=== PATIENT | female | born 1990 | race Caucasian/White ===

== ENCOUNTER 2017-07-02 18:50 | Inpatient (IN) | payer BC ==
[2017-07-02] MEDS ORDERED: Metoclopramide IV* 5 MG/ML 2 ML VIAL IV SLOW PU ONE (19:26)
[2017-07-02] MEDS ORDERED: Buffered Lidocaine 0.9% SYRIN* 5 ML/SYR SYRINGE INTRADERM ONE (19:26)
[2017-07-02] MEDS ORDERED: Ondansetron INJ* 2 MG/ML VIAL IV ONE (19:26)
[2017-07-02] MEDS ORDERED: Morphine PF AMP (0.5MG/ML)* 5 MG/10 ML AMP ONE (19:42)
[2017-07-02] MEDS ORDERED: fentaNYL* 50 MCG/ML 2 ML VIAL (100 MCG VIAL) ONE (19:42)
[2017-07-02] MEDS ORDERED: OXYTOCIN* 10 UNITS/ML 1 ML VIAL ONE (19:43)
[2017-07-02] MEDS ORDERED: Ketorolac INJ* 30 MG/ML 1 ML VIAL ONE (19:43)
[2017-07-02] MEDS ORDERED: ceFOXitin 2 GM IVPREMIX* 2 GM/50 ML BAG IVPB ONE (20:00)
[2017-07-02 20:08] LABS: Hematocrit 35 % (35-47); Hemoglobin 11.7 g/dl (12.0-16.0); Mean Corpuscular HGB Conc 34 g/dl (31-36); Mean Corpuscular Hemoglobin 28 pg (27-31); Mean Corpuscular Volume 85 fL (80-97); Mean Platelet Volume 9 um3 (7.4-10.4); Red Blood Count 4.12 10^6/ul (4.0-5.4); Red Cell Distribution Width 14 % (10.5-15); White Blood Count 8.9 10^3/ul (3.5-10.8)
[2017-07-02] MEDS ORDERED: Phenylephrine IV* 40 MCG/ML 10 ML SYRINGE ONE (20:45)
[2017-07-02] MEDS ORDERED: Witch Hazel PAD* JAR TOPICAL PRN (21:15)
[2017-07-02] MEDS ORDERED: Dibucaine 1% 28.35 GM TUBE PR PRN (21:15)
[2017-07-02] MEDS ORDERED: Acetaminophen TAB* 325 MG PO PRN ×2 (21:15→21:24)
[2017-07-02] MEDS ORDERED: Glycerin ADULT SUPP PR PRN (21:15)
[2017-07-02] MEDS ORDERED: Ondansetron INJ* 2 MG/ML VIAL IV PRN (21:24)
[2017-07-02] MEDS ORDERED: fentaNYL* 50 MCG/ML 2 ML VIAL (100 MCG VIAL) IV PRN (21:24)
[2017-07-02] MEDS ORDERED: HYDROmorphone* 1 MG/ML 1 ML SYR IV PRN (21:24)
[2017-07-02] MEDS ORDERED: Nalbuphine* 20 MG/ML 1 ML VIAL IV PRN (21:24)
[2017-07-02] MEDS ORDERED: HYDROcodone/ACETAMIN 5-325 MG* 1 TAB PO PRN (21:24)
[2017-07-02] MEDS ORDERED: Naloxone* 0.4 MG/ML 1 ML VIAL IV PRN (21:26)
[2017-07-02] MEDS ORDERED: Oxytocin in LR* 20 UNITS/1,000 ML BAG IVPB SCH (22:00)
[2017-07-03] MEDS ORDERED: Methylene Blue 0.5 %* 50 MG/10 ML AMP IV ONE (00:39)
[2017-07-03] MEDS: Ibuprofen TAB* 600 MG PO PRN ×3 (04:25→16:29)
[2017-07-03 07:06] LABS: Hematocrit 30 % (35-47); Hemoglobin 10.1 g/dl (12.0-16.0); Mean Corpuscular HGB Conc 34 g/dl (31-36); Mean Corpuscular Hemoglobin 29 pg (27-31); Mean Corpuscular Volume 84 fL (80-97); Mean Platelet Volume 9 um3 (7.4-10.4); Red Blood Count 3.54 10^6/ul (4.0-5.4); Red Cell Distribution Width 14 % (10.5-15); White Blood Count 12.6 10^3/ul (3.5-10.8)
[2017-07-03] MEDS: Docusate CAP* 100 MG PO SCH ×3 (08:56→19:53)
[2017-07-03] MEDS: Simethicone CHEW TAB* 80 MG PO SCH ×4 (08:56→19:53)
--- NOTE | 2017-07-03 08:56 | OP ---
DATE OF OPERATION: 07/02/17 - ROOM #[facility]-116 DATE OF : 86 SURGEON: Sung Jacobs MD [employer]: Dr. Seo. ANESTHESIA: Spinal. PRE-OP DIAGNOSIS: Breech presentation in labor. POST-OP DIAGNOSIS: Breech presentation in labor. OPERATIVE PROCEDURE: Low transverse section. ESTIMATED BLOOD LOSS: 600 cc. FINDINGS: Include viable male, Apgars 9 and 9, and weight was 7 pounds 1 ounce. Normal uterus, fallopian tubes, and ovaries. FLUIDS: 750 cc of crystalloid. COMPLICATIONS: None. DESCRIPTION OF PROCEDURE: Patient identified, procedure identified as low transverse section. Patient was taken to the operating room, prepped and draped in the usual fashion in the left lateral recumbent position under spinal anesthesia. Pfannenstiel incision was made in the abdomen and carried down through fat, fascia, and peritoneum. A transverse incision was made in the lower uterine segment, extended laterally using blunt dissection. The above infant was brought out in the breech position. Baby was deep in the pelvis. Delivery was accomplished without any complications. Cord was doubly clamped and cut, and the was handed to the awaiting direct marketing coordinator. Cord blood was obtained. delivered spontaneously. Uterus was wiped out with wet lap sponge. Uterine incision was closed using 0 Polysorb in a running fashion. Second layer was used to imbricate the first layer. At the time of initial evaluation, there was a tear in the left uterine artery that was clamped with a Melinda and then ligated using a 0 Polysorb tie with good hemostasis. After the uterus was closed, the bladder was inspected. There was some concern the bladder was close to the uterine incision, so the bladder was filled with 250 cc of saline-diluted methylene blue with the bladder identified as being further from the incision than was first thought. No blue dye was seen within the incision as well. Uterus was placed back into the abdominal cavity. The gutters were wiped out with a wet lap sponge. Good hemostasis was verified. The peritoneum was closed using 3-0 Polysorb in a running fashion. Hemostasis was achieved in the subrectus layers. The fascia was closed using 0 Polysorb in a running fashion. Hemostasis achieved in the subcu, and the skin was closed with 4-0 Monocryl in subcuticular fashion, and Mastisol and Steri- Strips were applied. All sponge and instrument counts were correct and the patient returned to recovery room in stable condition. [id number]/[facility] #: [id number] MTDD
[2017-07-03] MEDS ORDERED: Ferrous Gluconate TAB* 324 MG TAB PO SCH (09:00)
[2017-07-03] MEDS ORDERED: Zolpidem TAB* 5 MG PO PRN (12:15)
[2017-07-03] MEDS ORDERED: oxyCODONE/Acetamin 5/325 MG* TAB PO PRN (12:15)
[2017-07-03] MEDS: oxyCODONE/Acetamin 5/325 MG* TAB PO PRN ×2 (15:44→19:53)
[2017-07-04] MEDS: Ibuprofen TAB* 600 MG PO PRN ×4 (01:18→20:32)
[2017-07-04] MEDS: oxyCODONE/Acetamin 5/325 MG* TAB PO PRN ×5 (01:18→20:33)
--- NOTE | 2017-07-04 08:12 | PTEDU ---
Patient Name: MARIO SHETTY MARIO SHETTY selected video: BBOB: Nurturing Your Gorgeous \T\Growing Baby by to acry vick on 07/04/2017 at 8:11:01 AM from [id number]
[2017-07-04] MEDS: Simethicone CHEW TAB* 80 MG PO SCH ×4 (09:07→20:32)
[2017-07-04] MEDS: Docusate CAP* 100 MG PO SCH ×3 (09:07→20:32)
--- NOTE | 2017-07-04 10:50 | PTEDU ---
Patient Name: MARIO SHETTY MARIO SHETTY selected video: Never Ever Shake a Baby to view on 07/04/2017 at 10:49:19 AM from [facility] [id number]
--- NOTE | 2017-07-04 11:31 | PTEDU ---
Patient Name: MARIO SHETTY MARIO SHETTY selected video: BBOB: Bonding Through Massage to view on 07/04/2017 at 11:30:3 5 AM from [id number]
[2017-07-05] MEDS: Ibuprofen TAB* 600 MG PO PRN ×2 (03:04→08:41)
[2017-07-05] MEDS: oxyCODONE/Acetamin 5/325 MG* TAB PO PRN ×2 (03:04→08:42)
[2017-07-05] MEDS: Docusate CAP* 100 MG PO SCH (08:41)
[2017-07-05] MEDS: Simethicone CHEW TAB* 80 MG PO SCH (08:41)
[2017-07-05] MEDS ORDERED: Influenza VAC *QUAD* 2017-18* 0.5 ML SYRINGE IM ONE (09:00)
[2017-07-05 12:50] VITALS: BP 114/65
== END 2017-07-05 13:25 | disposition home or self-care (01) | DRG 540 ==
LOC: MCHOBOUT 18:50 → MCHOB 19:11
PROVIDERS: ADMIT Obstetrics & Gynecology; ATTEND Obstetrics & Gynecology
PROC: 10D00Z1 Extraction of Products of Conception, Low, Open Approach (ICD-10-PCS; principal; 2017-07-02 20:09)
DX: O32.1XX0 Maternal care for breech presentation, not applicable or unspecified (principal); Z37.0 Single live birth; Z3A.39 39 weeks gestation of pregnancy
CPT/HCPCS: 36415; 85025; 86850; 86900; 86901; 90686; A9270-GY; J0694; J1885; J2405; J2590; J2765; J3010